=== PATIENT | female | born 1960 | race Caucasian/White ===

== ENCOUNTER 2019-05-04 18:37 | Observation (INO) | payer SELFPAY ==
[~2019-05-04] VITALS: Ht 165.1 cm; Wt 73.5 kg
[2019-05-04] MEDS ORDERED: SOD CHLORIDE 0.9% 1,000 ML IV SCH (22:47)
--- NOTE | 2019-05-04 22:49 | ERD ---
ER Documentation Chief Complaint Chief Complaint FISH BONE IN THROAT X'S 40 MIN HPI This is a 58-year-old female who was eating chicken very quickly just prior to arrival. She states she felt the bone get stuck in her throat so she came in. She tried drinking some water and other food but is not passing it down. No shortness of breath or chest pain. The pain is sharp and worse with swallowing ROS All systems reviewed and are negative except as per history of present illness. Allergies Allergies: Coded Allergies: No Known Allergy (Unverified , 05/04/19) PMhx/Soc Medical and Surgical Hx: pt denies Medical Hx, pt denies Surgical Hx Hx Alcohol Use: No Hx Substance Use: No Hx Tobacco Use: No Smoking Status: Never smoker FmHx Family History: No coronary disease Physical Exam Vitals Vital Signs Date Temp Pulse Resp B/P (MAP) Pulse Ox O2 O2 Flow FiO2 Time Delivery Rate 05/04/19 97.5 77 18 179/79 100 18:40 (112) Physical Exam Const: Well-developed, well-nourished Head: Atraumatic, normocephalic Eyes: Normal Conjunctiva, PERRLA, EOMI, normal sclera, no nystagmus ENT: Normal External Ears, Nose and Mouth, moist mucus membranes. Neck: Full range of motion. No meningismus, no lymphadenopathy. Resp: Clear to auscultation bilaterally, no wheezing, rhonchi, rales Cardio: Regular rate and rhythm, no murmurs, S1 S2 present Abd: Soft, non tender x 4, non distended. Normal bowel sounds, no guard ing or rebound, no pulsitile abdominal masses or bruits Skin: No petechiae or rashes, no ecchymosis , no maculopapular rash Back: No midline or flank tenderness Ext: No cyanosis, or edema, FROM x 4, normal inspection, neurovascularly intact x 4 Neur: Awake and alert, STR 5/5 x 4, sensation intact x 4, no focal findings, cerebellum intact Psych: Normal Mood and Affect Result Diagram: 05/04/19220105/04/192201 Results 24 hrs Laboratory Tests Test 05/04/19 22:02 White Blood Count 8.2 10^3/ul Red Blood Count 4.44 10^6/ul Hemoglobin 12.7 g/dl Hematocrit 39.4 % Mean Corpuscular Volume 88.7 fl Mean Corpuscular Hemoglobin 28.6 pg Mean Corpuscular Hemoglobin Concent 32.2 g/dl Red Cell Distribution Width 14.5 % Platelet Count 440 10^3/UL Mean Platelet Volume 8.8 fl Immature Granulocytes % 0.400 % Neutrophils % 60.5 % Lymphocytes % 31.4 % Monocytes % 5.8 % Eosinophils % 1.3 % Basophils % 0.6 % Nucleated Red Blood Cells % 0.0 /100WBC Immature Granulocytes # 0.030 10^3/ul Neutrophils # 5.0 10^3/ul Lymphocytes # 2.6 10^3/ul Monocytes # 0.5 10^3/ul Eosinophils # 0.1 10^3/ul Basophils # 0.1 10^3/ul Nucleated Red Blood Cells # 0.0 10^3/ul Prothrombin Time 12.4 Sec Prothrombin Time Ratio 1.0 INR International Normalized Ratio 0.91 Activated Partial Thromboplast Time 28.9 Sec Sodium Level 141 mmol/L Potassium Level 4.1 mmol/L Chloride Level 107 mmol/L Carbon Dioxide Level 26 mmol/L Anion Gap 8 Blood Urea Nitrogen 14 mg/dl Creatinine 0.67 mg/dl Est Glomerular Filtrat Rate mL/min > 60 mL/min Glucose Level 130 mg/dl Calcium Level 10.1 mg/dl [facility]/[place] [id number] Radiology Main Line: [phone] DIAGNOSTIC IMAGING REPORT Patient: MERLINE GAY : 1960 Age: 58 Sex: F [id number] [id number] DOS: 05/04/191913 Ordering MD: STEVE WARREN MD Location: E/R Room/Bed: PROCEDURE: CT soft tissue neck without contrast. CLINICAL INDICATION: Throat pain with concern for retained fish bone. TECHNIQUE: The study was performed utilizing a [employer] multidetector CT scanner. Direct thin section helically acquired axial sections were obtained through the neck without contrast. Coronal and sagittal reformations were obtained. The images were reviewed on a PACS workstation. The total CTDIvol is 8.6 mGy and the DLP is 213.2 mGy-cm. DICOM images are available. One or more of the following dose reduction techniques were utilized: 1.) Automated exposure control 2.) Adjustment of the mA +/- kV according to patient's size 3.) Use of iterative reconstruction technique. COMPARISON: No prior studies are available for comparison. FINDINGS: Limited unenhanced aerodigestive tract evaluation demonstrates mild asymmetric soft tissue effacement of the left piriform sinus (axial image 33, coronal image 41), which may be technical or reflect mass lesion. Nodular soft tissue partial ly effacing the bilateral vallecula (axial image 28, sagittal image 55), likely reflecting prominent lingual tonsils which are most likely reactive. On limited unenhanced evaluation, there appears to be partial retropharyngeal course of bilateral internal carotid arteries slightly impressing upon the posterior oral pharyngeal cody (axial image 21). A wishbone measuring 1.8 cm in length is lodged in the cervical esophagus (axial image 46, coronal image 51, sagittal image 60). No pathologic lymphadenopathy identified by imaging criteria in the absence of intravenous contrast. The unenhanced salivary glands appear grossly normal. A 2.4 cm hypoattenuating nodule is noted in the left thyroid lobe (axial image 45, coronal image 43). Normal cervical lordosis. Cervical vertebral alignment is anatomic. Cervical vertebral body heights maintained at all levels. No evidence of acute fracture nor cortical disruption. Minimal multilevel cervical spondylotic changes with degenerative endplate changes, loss of disc height and posterior bulging with associated osteophyte complex, uncovertebral and facet arthropathy with ligamentum flavum thickening, which appears most pronounced at C5-6 without identifiable significant canal or neural foraminal stenosis, suboptimally evaluated by CT. Paraspinous musculature and prevertebral soft tissues appear normal. Visualized paranasal sinuses and mastoid air cells appear essentially clear. Slight rightward nasal septal deviation. Visualized pulmonary apices appear essentially clear. IMPRESSION: 1. Wishbone measuring 1.8 cm in length lodged in the cervical esophagus. Endoscopic extraction recommended. No evidence of esophageal rupture. 2. Mild asymmetric soft tissue effacement of the left piriform sinus may reflect edema or mass lesion. Clinical correlation recommended with consideration for further evaluation with direct visualization. For purposes of potential endoscopic evaluation, please note probable partial retropharyngeal course of bilateral ICA's slightly impressing upon the posterior oral pharyngeal cody. 3. Probable prominent lingual tonsils partially efface the bilateral vallecula. 4. Left thyroid lobe 2.4 cm nodule. Further evaluation with thyroid ultrasound recommended. 5. Minimal multilevel spondylotic changes appear most pronounced at C5-6, without identifiable significant canal or neural foraminal stenosis. This can be better evaluated by MRI C-spine if clinically warranted. Critical findings discussed with and acknowledged by Dr. Warren at 9:05 p.m. 05/04/2019. RPTAT: HSAN Ashley Callejas Physician Date Time Electronically viewed and signed by Ashley Callejas Physician on 05/04/2019 21:26 xN/ CC: STEVE WARREN MD [phone] Spoke to Dr. Alexandra alvarado of GI he will take the patient to the GI lab in the morning to remove the bone Departure Diagnosis: Primary Impression: Esophageal foreign body Encounter type: initial encounter Qualified Codes: T18.108A - Unspecified foreign body in esophagus causing other injury, initial encounter Condition: Stable JAVIER GONSALEZ DO May 04, 2019 22:49
[2019-05-04] MEDS ORDERED: ACETAMINOPHEN 325 MG TAB PO PRN ×2 (23:00→23:30)
[2019-05-04] MEDS ORDERED: ONDANSETRON 4 MG INJ IV PRN ×2 (23:00→23:30)
[2019-05-04] MEDS ORDERED: ONDANSETRON 4 MG INJ IV STA (23:18)
[2019-05-04] MEDS ORDERED: HYDROmorphONE 1 MG/ML SYG IV STA (23:18)
[2019-05-04] MEDS ORDERED: hydrALAzine 20 MG INJ IV PRN (23:30)
[2019-05-04] MEDS ORDERED: NACL 0.9% 3 ML SYG IV SCH (23:30)
[2019-05-04] MEDS ORDERED: NITROGLYCERIN (SL) 0.4 MG TAB SL PRN (23:30)
[2019-05-04] MEDS ORDERED: ALBUTEROL/IPRATROPIUM (NEB) 3 ML AMP HHN PRN (23:30)
[2019-05-04] MEDS ORDERED: MAGNESIUM HYDROXIDE 30ML CUP PO PRN (23:30)
[2019-05-04] MEDS ORDERED: LORAZEPAM 2 MG INJ IV PRN (23:30)
[2019-05-04] MEDS ORDERED: morphine 2 MG INJ IV PRN (23:30)
[2019-05-04] MEDS ORDERED: HYDROCODONE/APAP (5/325) TAB PO PRN (23:30)
[2019-05-04] MEDS ORDERED: DOCUSATE SODIUM 100 MG CAP PO PRN (23:30)
[2019-05-04] MEDS: SOD CHLORIDE 0.45% 1,000 ML IV SCH (23:44)
[2019-05-05] VITALS (14 sets, daily range): BP systolic 119–140; BP diastolic 57–74; PULSE 54–82; RESP 11–20; Ht 165.1 cm; Wt 73.5 kg
--- NOTE | 2019-05-05 04:45 | HP ---
Date/Time of Note Date/Time of Note DATE: 05/05/19 TIME: 04:38 Assessment/Plan VTE Prophylaxis SCD applied (from Nsg): No SCD contraindicated: other Pharmacological prophylaxis: heparin Lines/Catheters IV Catheter Type (from Nrsg): Peripheral IV Assessment/Plan Hospital Course Assessment and plan: 58-year-old female with no sniffing a past medical history other than appendectomy in the past, who presents with throat pain with findings of wishbone stuck in the proximal esophagus. 1. Throat pain: Again likely secondary to the wishbone stuck in the proximal esophagus after eating chicken -Check TSH, A1c, lipid panel, continue pain control medications and IV fluids, antiemetics as necessary -Again GI consult will be obtained and patient likely would benefit from EGD to help extract this regimen, will discuss with GI team about the final plan on this 2. Left thyroid lobe - 2.4 cm nodule found on the CT neck scan today. -Monitor, consider thyroid ultrasound particularly if symptoms worsen. Result Diagram: 05/04/19220105/04/19 2202 Results 24hrs Laboratory Tests Test 05/04/19 22:02 White Blood Count 8.2 Red Blood Count 4.44 Hemoglobin 12.7 Hematocrit 39.4 Mean Corpuscular Volume 88.7 Mean Corpuscular Hemoglobin 28.6 L Mean Corpuscular Hemoglobin Concent 32.2 Red Cell Distribution Width 14.5 Platelet Count 440 H Mean Platelet Volume 8.8 Immature Granulocytes % 0.400 Neutrophils % 60.5 Lymphocytes % 31.4 Monocytes % 5.8 Eosinophils % 1.3 Basophils % 0.6 Nucleated Red Blood Cells % 0.0 Immature Granulocytes # 0.030 Neutrophils # 5.0 Lymphocytes # 2.6 Monocytes # 0.5 Eosinophils # 0.1 Basophils # 0.1 Nucleated Red Blood Cells # 0.0 Prothrombin Time 12.4 Prothrombin Time Ratio 1.0 INR International Normalized Ratio 0.91 Activated Partial Thromboplast Time 28.9 Sodium Level 141 Potassium Level 4.1 Chloride Level 107 Carbon Dioxide Level 26 Anion Gap 8 Blood Urea Nitrogen 14 Creatinine 0.67 Est Glomerular Filtrat Rate mL/min > 60 Glucose Level 130 Calcium Level 10.1 Free Thyroxine 0.95 HPI/ROS Admit Date/Time Admit Date/Time May 04, 2019 at 22:47 Hx of Present Illness 58-year-old female with no sniffing a past medical history other than appendectomy in the past, who presents with throat pain. Patient was eating chicken very quickly just prior to arrival. Patient stated she felt the bone get stuck in her throat decided to come into the ER. She tried drinking some water and other food but is not passing it down. The pain is sharp and worse with swallowing. Patient denies fever or chills, nausea vomiting, diarrhea constipation, shortness of breath or chest pain. When the patient came in she had a CT scan soft tissue neck performed which showed: IMPRESSION: 1. Wishbone measuring 1.8 cm in length lodged in the cervical esophagus. Endoscopic extraction recommended. No evidence of esophageal rupture. 2. Mild asymmetric soft tissue effacement of the left piriform sinus may reflect edema or mass lesion. Clinical correlation recommended with consideration for further evaluation with direct visualization. For purposes of potential endoscopic evaluation, please note probable partial retropharyngeal course of bilateral ICA's slightly impressing upon the posterior oral pharyngeal cody. 3. Probable prominent lingual tonsils partially efface the bilateral vallecula. 4. Left thyroid lobe 2.4 cm nodule. Further evaluation with thyroid ultrasound recommended. 5. Minimal multilevel spondylotic changes appear most pronounced at C5-6, without identifiable significant canal or neural foraminal stenosis. This can be better evaluated by MRI C-spine if clinically warranted. Given the findings of a wishbone stuck in the cervical esophagus, a call has been made out to the GI team who will come evaluate the patient in the morning and likely proceed with EGD. PMH/Family/Social Past Medical History Medications Current Medications Sodium Chloride 1,000 ml @ 80 mls/hr [id number] IV Last administered on 05/04/19at 23:20; Admin Dose 80 MLS/HR; Start 05/04/19 at 22:47; Stop 05/05/19 at 11:16 Ondansetron HCl (Zofran Inj) 4 mg BRIDGE ORDER PRN IV NAUSEA/VOMITING; Start 05/04/19 at 23:00; Stop 05/05/19 at 22:59 Acetaminophen (Tylenol Tab) 650 mg ER BRIDGE PRN PO .MILD PAIN 1-3 OR TEMP; Start 05/04/19 at 23:00; Stop 05/05/19 at 22:59 IV Flush (NS 3 ml) 3 ml PER PROTOCOL IV ; Start 05/04/19 at 23:30 Ondansetron HCl (Zofran Inj) 4 mg Q6H PRN IV NAUSEA/VOMITING; Start 05/04/19 at 23:30 Acetaminophen (Tylenol Tab) 650 mg Q6H PRN PO .PAIN 1-3 OR TEMP; Start 05/04/19 at 23:30 Acetaminophen/ Hydrocodone Bitart ([place] (5/325)) 1 tab Q6H PRN PO .MOD PAIN 4- 6; Start 05/04/19 at 23:30 Morphine Sulfate (morphine) 2 mg Q4H PRN IV .SEVERE PAIN 7-10; Start 05/04/19 at 23:30 Docusate Sodium (Colace) 100 mg Q12H PRN PO .CONSTIPATION; Start 05/04/19 at 23:30 Magnesium Hydroxide (Milk Of Mag) 30 ml DAILY PRN PO .CONSTIPATION; Start 05/04/19 at 23:30 Pantoprazole (Protonix Iv) 40 mg DAILY@06 IV ; Start 05/05/19 at 06:00 Heparin Sodium (Porcine) (Heparin (5000 Units/1ml)) 5,000 unit Q12 SC ; Start 05/05/19 at 09:00 Sodium Chloride 1,000 ml @ 75 mls/hr [id number] IV Last administered on 05/04/19at 23:44; Admin Dose 75 MLS/HR; Start 05/04/19 at 23:12 Lorazepam (Ativan) 0.5 mg Q6H PRN IV ANXIETY; Start 05/04/19 at 23:30 Albuterol/ Ipratropium (Duoneb) 3 ml Q4H RESP THERAPY PRN HHN SHORTNESS OF BREATH; Start 05/04/19 at 23:30 Hydralazine HCl (Apresoline) 10 mg Q6H PRN IV ELEVATED BLOOD PRESSURE; Start 05/04/19 at 23:30 Nitroglycerin (Nitroglycerin (Sl Tab) 0.4 Mg) 1 tab Q5M PRN SL ANGINA; Start 05/04/19 at 23:30 Coded Allergies: No Known Allergy (Unverified , 05/04/19) Past Surgical History Past Surgical Hx: other (Appendectomy) Family History Significant Family History: no pertinent family hx Social History Alcohol Use: none Smoking Status: Never smoker Drug Use: none Exam/Review of Systems Vital Signs Vitals Vital Signs Date Temp Pulse Resp B/P (MAP) Pulse Ox O2 O2 Flow FiO2 Time Delivery Rate 05/05/19 97.6 57 18 140/69 98 00:30 (92) 05/04/19 Room Air 23:55 Intake and Output 05/04/19 05/04/19 05/05/19 1515:00 23:00 07:00 IntakeIntake Total 600 ml BalanceBalance 600 ml Exam Exam Gen: Lying in bed, NAD Head: Atraumatic. Eyes: Normal Conjunctiva. ENT: Normal External Ears, Nose and Mouth. Neck: Full range of motion. No meningismus. Resp: Clear to auscultation bilaterally. Cardio: Regular rate and rhythm. Abd: Soft, nondistended, normal bowel sounds, non tender. Ext: No lower extremity edema bilaterally Neuro: No focal deficits MACARIO MCDOWELL May 05, 2019 04:45
[2019-05-05] MEDS ORDERED: PANTOPRAZOLE 40 MG INJ IV SCH (06:00)
--- NOTE | 2019-05-05 08:38 | PREAC ---
Date/Time of Note Date/Time of Note DATE: 05/05/19 TIME: 08:31 Anesthesia Eval and Record Evaluation Time Pre-Procedure Interview DATE: 05/05/19 TIME: 08:10 Age 58 Sex female NPO: 8 hrs Preoperative diagnosis retained esophageal/hypopharynx foreign body Planned procedure EGD/removal of esophageal/hypopharynx foreign body Past Medical History Past Medical History: Includes Surgery & Anesthesia Issues No known issue Meds Anticoagulation: No Beta Monico within 24 hr: No Reason Beta Monico not given: Pt. not on B-Monico Current Medications Sodium Chloride 1,000 ml @ 80 mls/hr [id number] IV Last administered on 05/04/19at 23:20; Admin Dose 80 MLS/HR; Start 05/04/19 at 22:47; Stop 05/05/19 at 11:16 Ondansetron HCl (Zofran Inj) 4 mg BRIDGE ORDER PRN IV NAUSEA/VOMITING; Start 05/04/19 at 23:00; Stop 05/05/19 at 22:59 Acetaminophen (Tylenol Tab) 650 mg ER BRIDGE PRN PO .MILD PAIN 1-3 OR TEMP; Start 05/04/19 at 23:00; Stop 05/05/19 at 22:59 IV Flush (NS 3 ml) 3 ml PER PROTOCOL IV ; Start 05/04/19 at 23:30 Ondansetron HCl (Zofran Inj) 4 mg Q6H PRN IV NAUSEA/VOMITING; Start 05/04/19 at 23:30 Acetaminophen (Tylenol Tab) 650 mg Q6H PRN PO .PAIN 1-3 OR TEMP; Start 05/04/19 at 23:30 Acetaminophen/ Hydrocodone Bitart ([place] (5/325)) 1 tab Q6H PRN PO .MOD PAIN 4- 6; Start 05/04/19 at 23:30 Morphine Sulfate (morphine) 2 mg Q4H PRN IV .SEVERE PAIN 7-10; Start 05/04/19 at 23:30 Docusate Sodium (Colace) 100 mg Q12H PRN PO .CONSTIPATION; Start 05/04/19 at 23:30 Magnesium Hydroxide (Milk Of Mag) 30 ml DAILY PRN PO .CONSTIPATION; Start 05/04/19 at 23:30 Pantoprazole (Protonix Iv) 40 mg DAILY@06 IV Last administered on 05/05/19at 05:44; Admin Dose 40 MG; Start 05/05/19 at 06:00 Heparin Sodium (Porcine) (Heparin (5000 Units/1ml)) 5,000 unit Q12 SC ; Start 05/05/19 at 09:00 Sodium Chloride 1,000 ml @ 75 mls/hr [id number] IV Last administered on 05/04/19at 23:44; Admin Dose 75 MLS/HR; Start 05/04/19 at 23:12 Lorazepam (Ativan) 0.5 mg Q6H PRN IV ANXIETY; Start 05/04/19 at 23:30 Albuterol/ Ipratropium (Duoneb) 3 ml Q4H RESP THERAPY PRN HHN SHORTNESS OF BREATH; Start 05/04/19 at 23:30 Hydralazine HCl (Apresoline) 10 mg Q6H PRN IV ELEVATED BLOOD PRESSURE; Start 05/04/19 at 23:30 Nitroglycerin (Nitroglycerin (Sl Tab) 0.4 Mg) 1 tab Q5M PRN SL ANGINA; Start 05/04/19 at 23:30 Meds reviewed: Yes Allergies Coded Allergies: No Known Allergy (Unverified , 05/04/19) Allergies Reviewed: Yes Labs/Studies Labs Reviewed: Reviewed by anesthesiologist Result Diagram: 05/05/19 0501 05/05/19 0501 Laboratory Tests 05/05/19 05:01 test: Negative Studies: ECG (nsr.), CXR (no i/e) Pre-procedure Exam Last vitals Vital Signs Date Temp Pulse Resp B/P (MAP) Pulse Ox O2 O2 Flow FiO2 Time Delivery Rate 05/05/19 98.0 54 17 125/65 97 Room Air 08:04 (85) Airway: Adequate mouth opening, Adequate thyromental dist Mallampati: Mallampati II Teeth: Normal Lung: Normal Heart: Normal ASA Physical Status ASA physical status: 1 Emergency: E Planned Anesthetic General/MAC: MAC Pre-operative Attestations Prior to commencing anesthesia and surgery, the patient was re-evaluated, there was verification of: *The patient's identity *The results of appropriate recent lab work and preoperative vital signs *The above evaluation not changing prior to induction *Anesthetic plan, risk benefits, alternative and complications discussed with pa tient/family; questions answered; patient/family understands, accepts and wishes to proceed. [employer] used JUDY MILLER MD May 05, 2019 08:38
[2019-05-05] MEDS ORDERED: HEPARIN 5,000 UNIT/1 ML VIAL SC SCH (09:00)
--- NOTE | 2019-05-05 09:28 | CONS ---
Assessment/Plan Assessment/Plan Hospital Course (Demo Recall) Impression: Foreign body (fish bone) 1.8 cm large and proximal esophagus Plan: EGD foreign body removal under general anesthesia. Consultation Date/Type/Reason Admit Date/Time May 04, 2019 at 22:47 Date of Consultation: May 05, 2019 Type of Consult Gastroenterology Reason for Consultation FB in proximal esophagus Date/Time of Note DATE: 05/05/19 TIME: 09:20 Hx of Present Illness 58 yo female swallowed a fishbone and feels it in upper esophagus. CT soft tissue neck 1.8 cm fishbone lodge in proxilmal esophagus. Will attempt endoscopic removal under general anesthesia. Review of Systems: [A 12 system, review was conducted and is negative except as noted in the HPI or here.] Past Medical History Medical History: no pertinent history Medications Current Medications Sodium Chloride 1,000 ml @ 80 mls/hr [id number] IV Last administered on 05/04/19at 23:20; Admin Dose 80 MLS/HR; Start 05/04/19 at 22:47; Stop 05/05/19 at 11:16 Ondansetron HCl (Zofran Inj) 4 mg BRIDGE ORDER PRN IV NAUSEA/VOMITING; Start 05/04/19 at 23:00; Stop 05/05/19 at 22:59 Acetaminophen (Tylenol Tab) 650 mg ER BRIDGE PRN PO .MILD PAIN 1-3 OR TEMP; Start 05/04/19 at 23:00; Stop 05/05/19 at 22:59 IV Flush (NS 3 ml) 3 ml PER PROTOCOL IV ; Start 05/04/19 at 23:30 Ondansetron HCl (Zofran Inj) 4 mg Q6H PRN IV NAUSEA/VOMITING; Start 05/04/19 at 23:30 Acetaminophen (Tylenol Tab) 650 mg Q6H PRN PO .PAIN 1-3 OR TEMP; Start 05/04/19 at 23:30 Acetaminophen/ Hydrocodone Bitart ([place] (5/325)) 1 tab Q6H PRN PO .MOD PAIN 4- 6; Start 05/04/19 at 23:30 Morphine Sulfate (morphine) 2 mg Q4H PRN IV .SEVERE PAIN 7-10; Start 05/04/19 at 23:30 Docusate Sodium (Colace) 100 mg Q12H PRN PO .CONSTIPATION; Start 05/04/19 at 23:30 Magnesium Hydroxide (Milk Of Mag) 30 ml DAILY PRN PO .CONSTIPATION; Start 05/04/19 at 23:30 Pantoprazole (Protonix Iv) 40 mg DAILY@06 IV Last administered on 05/05/19at 05:44; Admin Dose 40 MG; Start 05/05/19 at 06:00 Heparin Sodium (Porcine) (Heparin (5000 Units/1ml)) 5,000 unit Q12 SC ; Start 05/05/19 at 09:00 Sodium Chloride 1,000 ml @ 75 mls/hr [id number] IV Last administered on 05/04/19at 23:44; Admin Dose 75 MLS/HR; Start 05/04/19 at 23:12 Lorazepam (Ativan) 0.5 mg Q6H PRN IV ANXIETY; Start 05/04/19 at 23:30 Albuterol/ Ipratropium (Duoneb) 3 ml Q4H RESP THERAPY PRN HHN SHORTNESS OF GARETH TH; Start 05/04/19 at 23:30 Hydralazine HCl (Apresoline) 10 mg Q6H PRN IV ELEVATED BLOOD PRESSURE; Start 05/04/19 at 23:30 Nitroglycerin (Nitroglycerin (Sl Tab) 0.4 Mg) 1 tab Q5M PRN SL ANGINA; Start 05/04/19 at 23:30 Allergies: Coded Allergies: No Known Allergy (Unverified , 05/04/19) Past Surgical History Past Surgical Hx: no surgical history, other (Appendectomy) Family History Significant Family History: no pertinent family hx Social History Alcohol Use: none Smoking Status: Never smoker Drug Use: none Exam/Review of Systems Exam Vitals Vital Signs Date Temp Pulse Resp B/P (MAP) Pulse Ox O2 O2 Flow FiO2 Time Delivery Rate 05/05/19 98.0 54 17 125/65 97 Room Air 08:04 (85) Intake and Output 05/04/19 05/04/19 05/05/19 1515:00 23:00 07:00 IntakeIntake Total 975 ml BalanceBalance 975 ml Exam PHYSICAL EXAMINATION: GENERAL: Well developed, well nourished, alert & oriented x 3, in no acute dis tress SKIN: No lesions, no stigmata chronic liver disease, no evidence of bleeding diathesis LYMPHATIC: No palpable lymphadenopathy. HEAD: Normocephalic, atraumatic, no tenderness. EYES: Pupils equal reactive to light and accommodation, full extraocular movements, sclera clear, non-icteric, no discharge. EARS/NOSE AND THROAT: Ears normal, nose normal, oropharynx normal, oral membranes well hydrated without lesions. NECK: Supple, no masses, thyroid normal, JVP within normal limits, carotids normal without bruits. CHEST: Inspection within normal limits. CARDIOVASCULAR: Heart: Regular rate and rhythm, no murmurs, gallops or rubs. Peripheral pulses present within normal limits, no cyanosis, clubbing or edemas. No pulsatile abdominal mass RESPIRATORY: Lungs clear to auscultation and percussion, no wheezing, no rubs GASTROINTESTINAL AND LIVER: Abdomen: Soft, non tenderness, non-distended, no h ernias, no masses, no organomegaly, no ascites, no guarding, no rebound tenderness, normoactive bowel sounds. Rectal: Deferred. GENITOURINARY: [Female genitalia within normal limits.] EXTREMITIES: No cyanosis, clubbing or edema. [MUSCULO-SKELETAL: Gait and station within normal limits, range of motion adequate.] [NEUROLOGIC: Cranial nerves II-XII intact, Motor within normal limits, Sensory within normal limits. Reflexes within normal limits. PSYCHIATRIC: Alert & oriented x 3, mood/affect/judgement adequate] Results Result Diagram: 05/05/19 0501 05/05/19 0501 Results 24hrs Laboratory Tests Test 05/04/19 22:02 05/05/19 05:01 White Blood Count 8.2 7.6 Red Blood Count 4.44 4.32 Hemoglobin 12.7 12.0 Hematocrit 39.4 38.6 Mean Corpuscular Volume 88.7 89.4 Mean Corpuscular Hemoglobin 28.6 L 27.8 L Mean Corpuscular Hemoglobin Concent 32.2 31.1 L Red Cell Distribution Width 14.5 14.7 H Platelet Count 440 H 407 Mean Platelet Volume 8.8 9.6 Immature Granulocytes % 0.400 0.100 Neutrophils % 60.5 39.4 Lymphocytes % 31.4 49.6 Monocytes % 5.8 7.7 Eosinophils % 1.3 2.8 Basophils % 0.6 0.4 Nucleated Red Blood Cells % 0.0 0.0 Immature Granulocytes # 0.030 0.010 Neutrophils # 5.0 3.0 Lymphocytes # 2.6 3.8 H Monocytes # 0.5 0.6 Eosinophils # 0.1 0.2 Basophils # 0.1 0.0 Nucleated Red Blood Cells # 0.0 0.0 Prothrombin Time 12.4 12.8 Prothrombin Time Ratio 1.0 1.0 INR International Normalized Ratio 0.91 0.95 Activated Partial Thromboplast Time 28.9 30.1 Sodium Level 141 141 Potassium Level 4.1 3.6 Chloride Level 107 108 Carbon Dioxide Level 26 25 Anion Gap 8 8 Blood Urea Nitrogen 14 13 Creatinine 0.67 0.57 Est Glomerular Filtrat Rate mL/min > 60 > 60 Glucose Level 130 87 # Calcium Level 10.1 9.5 Free Thyroxine 0.95 Hemoglobin A1c 5.5 Phosphorus Level 4.3 Magnesium Level 2.0 Triglycerides Level 103 Cholesterol Level 184 LDL Cholesterol, Calculated 107 HDL Cholesterol 56 Cholesterol/HDL Ratio 3.2 Thyroid Stimulating Hormone (TSH) 5.230 H Medications Medication Current Medications Sodium Chloride 1,000 ml @ 80 mls/hr [id number] IV Last administered on 05/04/19at 23:20; Admin Dose 80 MLS/HR; Start 05/04/19 at 22:47; Stop 05/05/19 at 11:16 Ondansetron HCl (Zofran Inj) 4 mg BRIDGE ORDER PRN IV NAUSEA/VOMITING; Start 05/04/19 at 23:00; Stop 05/05/19 at 22:59 Acetaminophen (Tylenol Tab) 650 mg ER BRIDGE PRN PO .MILD PAIN 1-3 OR TEMP; Start 05/04/19 at 23:00; Stop 05/05/19 at 22:59 IV Flush (NS 3 ml) 3 ml PER PROTOCOL IV ; Start 05/04/19 at 23:30 Ondansetron HCl (Zofran Inj) 4 mg Q6H PRN IV NAUSEA/VOMITING; Start 05/04/19 at 23:30 Acetaminophen (Tylenol Tab) 650 mg Q6H PRN PO .PAIN 1-3 OR TEMP; Start 05/04/19 at 23:30 Acetaminophen/ Hydrocodone Bitart ([place] (5/325)) 1 tab Q6H PRN PO .MOD PAIN 4- 6; Start 05/04/19 at 23:30 Morphine Sulfate (morphine) 2 mg Q4H PRN IV .SEVERE PAIN 7-10; Start 05/04/19 at 23:30 Docusate Sodium (Colace) 100 mg Q12H PRN PO .CONSTIPATION; Start 05/04/19 at 23:30 Magnesium Hydroxide (Milk Of Mag) 30 ml DAILY PRN PO .CONSTIPATION; Start 05/04/19 at 23:30 Pantoprazole (Protonix Iv) 40 mg DAILY@06 IV Last administered on 05/05/19at 05:44; Admin Dose 40 MG; Start 05/05/19 at 06:00 Heparin Sodium (Porcine) (Heparin (5000 Units/1ml)) 5,000 unit Q12 SC ; Start 05/05/19 at 09:00 Sodium Chloride 1,000 ml @ 75 mls/hr [id number] IV Last administered on 05/04/19at 23:44; Admin Dose 75 MLS/HR; Start 05/04/19 at 23:12 Lorazepam (Ativan) 0.5 mg Q6H PRN IV ANXIETY; Start 05/04/19 at 23:30 Albuterol/ Ipratropium (Duoneb) 3 ml Q4H RESP THERAPY PRN HHN SHORTNESS OF BREATH; Start 05/04/19 at 23:30 Hydralazine HCl (Apresoline) 10 mg Q6H PRN IV ELEVATED BLOOD PRESSURE; Start 05/04/19 at 23:30 Nitroglycerin (Nitroglycerin (Sl Tab) 0.4 Mg) 1 tab Q5M PRN SL ANGINA; Start 05/04/19 at 23:30 FABIAN WILLARD MD May 05, 2019 09:28
[2019-05-05] MEDS ORDERED: NEOSTIGMINE 3 MG/3 ML SYRINGE ONE (09:33)
[2019-05-05] MEDS ORDERED: GLYCOPYRROLATE 0.4 MG INJ ONE (09:33)
[2019-05-05] MEDS ORDERED: LACTATED RINGER'S 1,000 ML IV SCH (09:41)
--- NOTE | 2019-05-05 09:42 | OPPN ---
Date/Time of Note Date/Time of Note DATE: 05/05/19 TIME: 09:35 Proc Note GI Procedure Date 05/05/19 Indication: diagnostic, treatment Pre-procedure Diagnosis Foreign body in proximal esophagus. Post-procedure Diagnosis Impression: Fishbone and proximal esophagus embedded into the mucosa. Manipulated with a grasping forceps to dislodged and removed 4 mm mucosal injury inside of lodging of fishbone tip. No additional injury upon removal by fishbone or endoscope Plan: CT soft tissue neck with oral contrast per recommendation from radiology telecommunications consultant Once image confirmation of no leak/perforation advance diet as tolerated and di scharge if tolerated Procedure Performed: Endoscopy (Foreign body removal) Surgeon FABIAN WILLARD MD See signature line Swage Tender none Anesthesia Type: general Anesthesiologist: JUDY MILLER MD Tourniquet Time none EBL none Transfusion required none Biopsy 1: None Grafts/Implants none Tubes/Drains none Complication(s) none Disposition: PACU Procedure Description After informed consent, with the patient/relatives understanding the procedure, its indications, potential risks and complications, including but not limited to: allergic reaction, bleeding, perforation or infection, and after all pertinent questions were answered to the patients satisfaction, the patient/relatives signed witnessed informed consent. Following this, premedication was administered slowly IV push under careful cardiovascular and respiratory monitoring with pulse oximetry, automatic blood pressure, and telegraph repeater installer. Once the sedative effect was achieved the patient was place in the left lateral decubitus, the panendoscope was introduced and advanced under visual control. Careful examination of the upper gastrointestinal tract, both on insertion as well as withdrawal of the instrument disclosing the following findings: ESOPHAGUS: the mucosa of the entire esophagus was carefully examined and showed the following findings: There is a rather thick fishbone with a touch fish in the proximal esophagus 2 cm from the upper esophageal sphincter. The fishbone is embedded into the mucosa. We proceeded to attach to the tip of the banding device after removal of all the bands to the tip of the endoscope. We then approached the fishbone and secure it with a grasping forceps and gently dislodge that my from the mucosa oriented into the plastic tip attached to the endoscope and withdrew it without difficulty or evidence of additional injury. We then proceeded to reevaluate the area there is a 45 mm mucosal injury in room 1 of the cody where the sharpest part of the fishbone had been embedded, no bleeding was noted. No additional injury by the fishbone or endoscope was present. Otherwise the mucosa appears within normal limits. There is no evidence of esophagitis, varices, neoplasm, or stricture. No Hiatal Hernia identified. STOMACH: Upon entrance to the stomach air was insufflated, the gastric cody distended normally. The mucosa of the fundus, body and antrum of the stomach was carefully examined both head-on and on retroflexion, and showed the following findings: the mucosa appears within normal limits with no abnormalities. There is no evidence of gastritis, ulcers or neoplasm. PYLORUS: The pylorus was carefully examined and showed the following findings: the pylorus appears patent and within normal limits, with no evidence of gastric outlet obstruction. DUODENUM: The duodenal mucosa was carefully examined in the duodenal bulb as well as the second portion of the duodenum and showed the following findings: the mucosa appears unremarkable with no evidence of duodenitis, ulcer or neoplasm. Copies To: CC: FABIAN WILLARD MD ; FABIAN WILLARD MD May 05, 2019 09:42
[2019-05-05] MEDS ORDERED: ONDANSETRON 4 MG INJ IV PRN (10:00)
[2019-05-05] MEDS ORDERED: EPHEDrine 25 MG/5 ML SYG IV PRN (10:00)
[2019-05-05] MEDS ORDERED: KETOROLAC 60 MG INJ IM PRN (10:00)
[2019-05-05] MEDS ORDERED: HYDROmorphONE 1 MG/5 ML IV SYRINGE IV PRN ×3 (10:00)
[2019-05-05] MEDS ORDERED: METOCLOPRAMIDE 10 MG INJ IV PRN (10:00)
[2019-05-05] MEDS ORDERED: hydrALAzine 20 MG INJ IV PRN (10:00)
[2019-05-05] MEDS ORDERED: MIDAZOLAM 1 MG/ML 2 ML INJ IV PRN (10:00)
[2019-05-05] MEDS ORDERED: DIPHENHYDRAMINE 50 MG INJ IV PRN (10:00)
[2019-05-05] MEDS ORDERED: MEPERIDINE 25 MG INJ IV PRN (10:00)
[2019-05-05] MEDS ORDERED: KETOROLAC 30 MG INJ IV PRN (10:00)
[2019-05-05] MEDS ORDERED: LEVALBUTEROL (NEB) 0.63 MG/3 ML AMP HHN PRN (10:00)
[2019-05-05] MEDS ORDERED: KETOROLAC 15 MG INJ IV PRN (10:00)
[2019-05-05] MEDS: SOD CHLORIDE 0.45% 1,000 ML IV SCH (12:32)
[2019-05-05] MEDS ORDERED: SOD CHLORIDE 0.9% 100 ML ONE (13:29)
[2019-05-05] MEDS ORDERED: IOHEXOL 300MG/ML 150 ML BTL ONE (13:29)
--- NOTE | 2019-05-05 13:42 | PAC ---
Date/Time of Note Date/Time of Note DATE: 05/05/19 TIME: 13:42 Post-Anesthesia Notes Post-Anesthesia Note Last documented vital signs Vital Signs Date Temp Pulse Resp B/P (MAP) Pulse Ox O2 O2 Flow FiO2 Time Delivery Rate 05/05/19 97.8 55 17 125/60 Room Air 10:38 (81) 05/05/19 100 10:27 05/05/19 10.0 09:52 Activity: WNL Respiratory function: WNL Cardiovascular function: WNL Mental status: Baseline Pain reasonably controlled: Yes Hydration appropriate: Yes Nausea/Vomiting absent: Yes JUDY MILLER MD May 05, 2019 13:42
--- NOTE | 2019-05-05 15:44 | PDOCDIS ---
Discharge Instructions DIAGNOSIS Discharge Diagnosis 1. Throat pain: secondary to foreign body (fish bone) in the proximal esophagus 2. Left thyroid lobe - 2.4 cm nodule CONDITION [id number] Patient Condition: [id number] Stable HOME CARE INSTRUCTIONS: [id number] Diet Instructions: [id number] Low Fat /Cholesterol FOLLOW UP/APPOINTMENTS Follow-up Plan 1. Follow up with your primary care provider in one week. - Follow up with your physician for further monitoring of your thyroid nodule. KIAH VEGAS NP May 05, 2019 15:44
--- NOTE | 2019-05-08 17:49 | DS ---
Date/Time of Note Date/Time of Note DATE: 05/08/19 TIME: 17:44 Discharge Summary Admission/Discharge Info Admit Date/Time May 04, 2019 at 22:47 Discharge Date/Time May 05, 2019 at 18:43 Discharge Diagnosis 1. Throat pain: secondary to foreign body (fish bone) in the proximal esophagus 2. Left thyroid lobe - 2.4 cm nodule Patient Condition: Stable Consults 1. Dr. Bill Mcfarland Hospital Course This is a 58-year-old female with only reported history of appendectomy who came to the hospital due to throat pain. Patient was reportedly eating a piece of fish and stated that she felt the bone get stuck in the back of her throat. She came to the ER for this. She tried drinking water and eating other food to have a past but it did not. The pain progressively got worse with swallowing. As such was brought to the hospital. She had a CT scan initially of her neck that showed a wishbone measuring 1.8 cm in length lodged in the cervical esophagus. Patient was seen by medication manager for this issue. Patient did undergo EGD with removal of foreign body. During the course of stay she did improve. Repeat CT scan was done that showed removal of the fishbone that was there. Incidental finding however from for CT scan of the neck showed a 2.4 cm left thyroid nodule. She was advised for outpatient follow-up of her thyroid nodule. She was able to tolerate oral feeding on the day of her discharge. The plan of care was discussed with the patient and patient verbalized understanding. On the day of discharge patient was in stable condition Discussed plan of care with Dr. Joya [place] Meds No Active Prescriptions or Reported Meds Follow-up Plan 1. Follow up with your primary care provider in one week. - Follow up with your physician for further monitoring of your thyroid nodule. Primary Care Provider Care Physician No Primary Time spent on discharge: > 30 minutes KIAH VEGAS NP May 08, 2019 17:48
== END 2019-05-05 18:43 | disposition home or self-care (01) ==
LOC: FTE 18:37 → 2NE 22:47
PROVIDERS: ADMIT Hospitalist; ATTEND Hospitalist
DX: T18.128A Food in esophagus causing other injury, initial encounter (principal); E04.1 Nontoxic single thyroid nodule; X58.XXXA Exposure to other specified factors, initial encounter
CPT/HCPCS: 36415; 43247; 70490; 80048; 80061; 83036; 83735; 84100; 84439; 84443; 85025; 85610; 85730; 99285; C9113; G0378; J1170; J2710; J7030; J7120; Q9967